=== PATIENT | female | born 1965 | race Caucasian/White ===

== ENCOUNTER 2020-03-23 10:30 | Outpatient (CLI) | payer OTHER, SELFPAY ==
--- NOTE | ~2020-03-23 | MM_ITS ---
EXAMINATION: MM screening yvonne BI w doris HISTORY: Screening mammogram TECHNIQUE: Craniocaudal and mediolateral oblique 3-D tomosynthesis images were obtained and synthetic 2-D images were generated. CAD analysis was submitted and interpreted. COMPARISON: bilateral digital screening mammogram BREAST PARENCHYMAL COMPOSITION: The breasts are heterogeneously dense, which may obscure small masses . FINDINGS: Occasional bilateral benign calcifications, primarily arterial. There is no evidence of ry picious mass, calcification, or architectural distortion to suggest malignancy in either breast. Ther e has been no suspicious interval change. IMPRESSION: 1. No mammographic evidence of malignancy. 2. Recommend routine screening mammography in one year. BI-RADS Category 2: Benign finding(s). Reviewed, dictated and finalized at location A. OGY PHYSICIAN
== END 2020-03-23 10:31 | disposition home or self-care (01) ==
LOC: ANHIMG 10:32
PROVIDERS: PCP Physician Assistant; Visit Provider Obstetrics & Gynecology
DX: Z12.31 Encounter for screening mammogram for malignant neoplasm of breast (principal)
CPT/HCPCS: 77063; 77067

== ENCOUNTER 2020-04-07 07:46 | Outpatient (CLI) | payer OTHER, SELFPAY ==
--- NOTE | ~2020-04-07 | US_ITS ---
EXAMINATION: US pelvic complete EXAM DATE: 04/07/2020 09:16 INDICATION: Right lower quadrant pain. TECHNIQUE: Pelvic transabdominal sonogram was performed. There are multiple grayscale and Doppler im ages available for interpretation. There is no prior study for comparison. FINDINGS: Uterus measures 8.1 x 3.1 x 4.2 cm, is anteverted and morphologically normal. Endometrial stripe measures 6 mm, within normal limits. There is no free pelvic fluid. Right adnexa: The ovary measures 2.1 x 1.1 x 2.1 cm and is morphologically normal. Ovarian vascular f low confirmed. Left adnexa: The ovary measures 1.1 x 1.8 x 2.3 cm and is morphologically normal. Ovarian vascular fl ow confirmed. IMPRESSION: Unremarkable pelvic ultrasound exam. Reviewed, dictated and finalized at location B. CUTTER
--- NOTE | ~2020-04-07 | US_ITS ---
EXAMINATION: US abdomen complete DATE: 04/07/2020 09:14 INDICATION: Right lower quadrant abdominal pain. TECHNIQUE: Multiple grayscale and Doppler ultrasound images of the abdomen were obtained. COMPARISON: None FINDINGS: The visualized portions of the head, body, and tail of the pancreas are normal. The abdomin al aorta is normal in caliber. The inferior vena cava is normal. The liver is normal without focal le yesy. No liver surface nodularity. There is normal flow in main portal vein. The gallbladder is jose l in size. No gallstones or gallbladder wall thickening. There was no sonographic Botello sign. The co mmon duct is normal and measures 3 mm. The kidneys are normal in size. The spleen is normal in size. IMPRESSION: 1. Normal complete abdomen ultrasound. Reviewed, dictated and finalized at location A. AL LABORATORY ASSISTANT
== END 2020-04-07 07:47 | disposition home or self-care (01) ==
LOC: CHSIMG 07:49
PROVIDERS: PCP Physician Assistant; Visit Provider Physician Assistant
DX: R10.31 Right lower quadrant pain (principal)
CPT/HCPCS: 76700; 76856

== ENCOUNTER 2021-04-24 12:10 | Outpatient (CLI) | payer OTHER, SELFPAY ==
--- NOTE | ~2021-04-24 | MM_ITS ---
EXAMINATION: MM screening yvonne BI w doris HISTORY: Screening mammogram TECHNIQUE: Craniocaudal and mediolateral oblique 3-D tomosynthesis images were obtained and synthetic 2-D images were generated. CAD analysis was submitted and interpreted. COMPARISON: 03/23/2020, 06/25/2011 bilateral screening mammogram examinations BREAST PARENCHYMAL COMPOSITION: The breasts are heterogeneously dense, which may obscure small masses . FINDINGS: There is no evidence of suspicious mass, calcification, or architectural distortion to sugg est malignancy in either breast. There has been no suspicious interval change. IMPRESSION: 1. No mammographic evidence of malignancy. 2. Recommend routine screening mammography in one year. BI-RADS Category 1: Negative Reviewed, dictated and finalized at location A. WARE DEPLOYMENT ENGINEER
--- NOTE | ~2021-04-24 | XR_ITS ---
EXAMINATION: XR lumbar spine 2-3V DATE: 04/24/2021 12:48 INDICATION: Low back pain TECHNIQUE: Anteroposterior and lateral views of the lumbar spine, and cone-down lateral view of the l umbosacral junction were obtained. COMPARISON: None. FINDINGS: There is no fracture, dislocation, or subluxation. The vertebral body heights are maintaine d. There is moderate loss of intervertebral disc space height at L2-3 and mild loss of intervertebral disc space height throughout the remainder of the lumbar spine. Small degenerative osteophytes proje ct from the anterior endplates of multiple vertebral bodies. IMPRESSION: 1. Moderate lumbar spondylosis without acute findings. Reviewed, dictated and finalized at location F. R SENIOR SERGEANT
== END 2021-04-24 12:11 | disposition home or self-care (01) ==
LOC: CHSIMG 12:11
PROVIDERS: PCP Physician Assistant; Visit Provider Physician Assistant
DX: M54.51 Vertebrogenic low back pain (principal); Z12.31 Encounter for screening mammogram for malignant neoplasm of breast
CPT/HCPCS: 72100; 77063; 77067

== ENCOUNTER → 2021-05-19 00:50 | Outpatient (CLI) | payer OTHER, SELFPAY ==
[2021-05-19 12:15] LABS: SARS-CoV-2 RNA PCR Negative
== END ==
PROVIDERS: PCP Physician Assistant; Visit Provider Internal Medicine Gastroenterology
DX: Z01.812 Encounter for preprocedural laboratory examination (principal); Z20.822 Contact with and (suspected) exposure to COVID-19
CPT/HCPCS: C9803; U0003; U0005

== ENCOUNTER 2021-05-22 00:12 | Day surgery (SDC) | payer OTHER, SELFPAY ==
[2021-05-11 14:30] VITALS: BMI 19.5
[2021-05-22 06:40] VITALS: BP 109/56; PULSE 75; RESP 16; TEMP 36.7; O2SAT 99; BMI 19.4
[2021-05-22] MEDS: LACTATED RINGERS 1,000 ML 150 ML IV CONT (07:06)
--- NOTE | 2021-05-22 07:17 | P.PNAN_ITS ---
Anes - Initial Pre Proc Eval Procedure: Operation Date: 05/22/21 08:00 Proposed Procedures p Screening Colonoscopy - Ace Lott MD Date/Time: 05/22/21 07:17 Surgeon: Ace Lott MD Pre Op Diagnosis: neoplasm screening Patient Data Age: 55 Gender: F Height: 1.68 m Weight: 54.7 kg Last Vital Signs Temp 36.7 C 05/22/21 06:40 Pulse 75 05/22/21 06:40 Resp 16 05/22/21 06:40 BP 109/56 L 05/22/21 06:40 Pulse Ox 99 05/22/21 06:40 Allergies Allergy/AdvReac Type Severity Reaction Status Date / Time No Known Allergies Allergy Verified 05/22/21 06:49 Home Medications Medication Instructions Recorded Confirmed Type levothyroxine 150 mcg tablet 150 mcg PO DAILY 02/04/19 05/22/21 History multivitamin 1 tablet PO DAILY 03/14/21 05/22/21 History Patient hx anesthesia problems: none Family hx anesthesia problems: none Results Review: All pre-operative results and documents have been reviewed as part of the pre-operative evaluation. [facility] Past Medical History Medical History Anxiety Asthma Depression Hypothyroidism Mitral valve disorder Surgical History Surgical History H/O exploratory laparotomy Family History Family History Grandparent Cerebrovascular accident Family history of malignant neoplasm Social History Social History Smoking status: Former smoker Tobacco type: cigarettes Alcohol intake: current Drinks per week: 3 Living arrangements: with family Spiritual care concerns: No Anes - Eval Final PreProcedure Day of Procedure 05/22/21 07:17 Patient weight: normal Heart: regular rate and rhythm Lungs: clear to auscultation Airway: Mallampati scale class II Neurological: alert and oriented Last oral intake: >/= 8 hours ASA classification: II Emergent: no Anesthetic plan: proceed Anesthesia type and monitoring: general GIVS and standard monitoring Results Review: All pre-operative results and documents have been reviewed as part of the pre-operative evaluation. Informed Consent: The patient's anesthetic plan and its attendant risks and benefits were discussed with the patient/family/POA. Questions were solicited and answers provided to the satisfaction of the patient/family/POA.
--- NOTE | 2021-05-22 08:05 | PM.HPGS ---
History of Present Illness History of Present Illness Consent: Risks, benefits, and alternatives have been discussed and questions answered. Patient agrees to proceed with procedure. Chief complaint: neoplasm screening Narrative: Chayo Olivarez is a 55 year old female here for first screening colonoscopy Review of Systems Constitutional: Constitutional: Denies headache(s) and Denies weakness Eyes: Eyes: Denies blurry vision ENT: Reports Normal hearing present, Denies headache(s) and Denies neck pain Cardiovascular: Cardiovascular: Denies chest pain and Denies dyspnea Respiratory: Respiratory: Denies dyspnea Gastrointestinal: Gastrointestinal: Reports no additional gastrointestinal complaints Genitourinary: Genitourinary: Denies dysuria Musculoskeletal: Musculoskeletal: Denies neck pain Integumentary/Breasts: Skin/Breast: Denies dry skin Neurologic: Reports Normal hearing present, Denies headache(s) and Denies weakness Psychiatric: Psychiatric: Denies anxiety Endocrine: Endocrine: Denies change in body appearance Hematologic/Lymphatic: Hematologic/Lymphatic: Denies easy bleeding Allergic/Immunologic: Allergic/Immunologic: Denies urticaria PMF Past Medical History Medical History (Updated 05/22/21 @ 08:06 by Ace Lott MD) Anxiety Asthma Colon cancer screening Depression Hypothyroidism Mitral valve disorder Surgical History Surgical History H/O exploratory laparotomy Family History Family History Grandparent Cerebrovascular accident Family history of malignant neoplasm Social History Social History Smoking status: Former smoker Tobacco type: cigarettes Alcohol intake: current Drinks per week: 3 Living arrangements: with family Spiritual care concerns: No Meds Home Medications and Allergies Home Medications Medication Instructions Recorded Confirmed Type levothyroxine 150 mcg tablet 150 mcg PO DAILY 02/04/19 05/22/21 History multivitamin 1 tablet PO DAILY 03/14/21 05/22/21 History Allergies Allergy/AdvReac Type Severity Reaction Status Date / Time No Known Allergies Allergy Verified 05/22/21 06:49 Vital Signs Vital Signs - 24 hr 05/22/21 06:40 Temperature 98.1 F Pulse Rate 75 Respiratory Rate 16 Blood Pressure 109/56 L Pulse Oximetry 99 Exam Const: General: comfortable and no acute distress HENMT: General nose exam: Normal nares present Eyes: General: appearance normal, both eyes and all related structures Neck: Neck: no JVD Resp: Auscultation: clear to auscultation bilaterally Cardio: Rate: regular rate Rhythm: regular rhythm GI: Inspection: non-distended GI Palp: Yes Soft to palpation Skin: General skin exam: normal color Neuro: General: gait normal Speech: normal speech Extrem: General: normal to inspection Psych: Mental Status: mental status grossly normal Assessment and Plan Assessment and plan (1) Colon cancer screening: Code(s): Z12.11 - Encounter for screening for malignant neoplasm of colon Status: Acute Assessment and Plan: colonoscopy
[2021-05-22 08:18] VITALS: BP 87/33; PULSE 72; RESP 17; O2SAT 97
[2021-05-22 08:28] VITALS: BP 96/47; PULSE 54; RESP 20; O2SAT 97
[2021-05-22 08:38] VITALS: BP 93/56; PULSE 62; RESP 20; O2SAT 100
== END 2021-05-22 08:48 | disposition home or self-care (01) ==
PROVIDERS: PCP Physician Assistant; Visit Provider Internal Medicine Gastroenterology
PROC: 0DJD8ZZ Inspection of Lower Intestinal Tract, Via Natural or Artificial Opening Endoscopic (ICD-10-PCS; CPT 45378; principal; 2021-05-22 08:00)
DX: Z12.11 Encounter for screening for malignant neoplasm of colon (principal); F41.8 Other specified anxiety disorders; J45.909 Unspecified asthma, uncomplicated; E03.9 Hypothyroidism, unspecified; I34.8 Other nonrheumatic mitral valve disorders; Z87.891 Personal history of nicotine dependence
CPT/HCPCS: 45378; J2704; J7120

== ENCOUNTER 2022-08-19 13:45 | Outpatient (RCR) | payer OTHER, SELFPAY ==
--- NOTE | 2022-07-08 15:52 | PTOPEVAL1 ---
Assessment and note entered by Renata Tello DPT Evaluation Information Assessment Status Evaluation Subjective Information Pt reports a long history of pelvic pain and low right sided abdominal pain. Some pain with her last pelvic exam. Highest pain 3/10 recently and lowest 0/10. Pain increases with touching her abdomen, having a BM. Urinates 3-4 times a day and sometimes 1 time at night. Reports some issues with urgency, maybe can wait a couple minutes. Leaks urine, sometimes several times a day and then other times will go days without. Volume can be up to her full bladder. Wears a pad sometimes. No pain with urination. BM sometimes every 3rd day , has been diagnosed with IBS with constipation. Denies history of pain with tampon or itnercourse. Pt has been 4 times, 4 deliveries all vaginal, episiotomy with her first. Has a history of endometriosis. Patient goal: not have pain. Reported Pain Level Pain Score 0: Self Report Assessment PT Clinical Summary The patient is presenting to skilled therapy with a several year history of pelvic/abominal pain as well as urinary urgency and incontinence. She presents with pain with palpation and decreased pelvic floor and core strength which are contributing to her pain and difficulty with activities like having a BM and incontinence. She will benefit from therapy to address these impairments and safely reduce pain and dysfunction . Plan of Care Interventions Electrical Stimulation,Hot Pack/Cold Pack,Manual Therapy,Neuro Re-education,Patient/Caregiver Education,Therapeutic Activities,Therapeutic Exercise,Self-Care/Home Management PT Services Indicated Yes Treatment Frequency and 1 time a week for 4 weeks Duration These treatments will address the objective and functional deficits as defined above. The patient will be advanced safely and appropriately in order for the patient to progress towards his/her prior level of function. Additional exercises will be introduced and as well as a comprehensive home exercise program upon discharge, if needed, ?to ensure carryover of functional gains achieved in the clinic. This treatment plan has been reviewed and agreement upon by the patient.
--- NOTE | 2022-08-13 11:20 | PCPTNOTE ---
Patient forgot about appointment due to her work schedule. Will be in next week for her re-evaluation.
--- NOTE | 2022-08-19 14:15 | PTOPDC ---
Assessment and note entered by Renata Tello DPT Evaluation Information Assessment Status Discharge Subjective Information Highest pain recently 5/10 and lowest 0/10. Denies incontinence in the last week. Urinating 3-4 times a day. Feels confident in discharge this visit as the pain doesn't seem to affect much. Reported Pain Level Pain Score 0: Self Report Assessment PT Clinical Summary The patient has made good progress in therapy. She reports no incontinence in the last week and demonstrates improved pelvic floor strength and endurance. She reports less pelvic and abdominal pain with palpation, and that her pain does not limit activities at this time. Due to her progress , plan for discharge this visit. She has been educated to continue her HEP and follow up with MD and/or PT as needed. Plan of Care PT Services Indicated No
== END 2022-08-19 14:53 | disposition home or self-care (01) ==
LOC: ANHGOSHPT 13:45
PROVIDERS: PCP Physician Assistant; Visit Provider Obstetrics & Gynecology
DX: R10.2 Pelvic and perineal pain (principal)
CPT/HCPCS: 97110; 97112; 97140; 97161

== ENCOUNTER 2022-09-23 14:30 | Outpatient (CLI) | payer OTHER, SELFPAY ==
--- NOTE | ~2022-09-23 | MM_ITS ---
EXAMINATION: MM screening [facility] BI w doris HISTORY: Screening mammogram TECHNIQUE: Craniocaudal and mediolateral oblique 3-D tomosynthesis images were obtained and synthetic 2-D images were generated. CAD analysis was submitted and interpreted. COMPARISON: 04/24/2021, 03/23/2020 BREAST PARENCHYMAL COMPOSITION: The breasts are heterogeneously dense, which may obscure small masses . FINDINGS: No suspicious mass, calcification, or architectural distortion are identified in either alivia ast to suggest malignancy. There has been no suspicious interval change. IMPRESSION: 1. No mammographic evidence of malignancy. 2. Recommend routine screening mammography in one year. BI-RADS Category 1: Negative Reviewed, dictated and finalized at location A.
== END 2022-09-23 14:31 | disposition home or self-care (01) ==
LOC: CHSIMG 14:31
PROVIDERS: PCP Physician Assistant; Visit Provider Obstetrics & Gynecology
DX: Z12.31 Encounter for screening mammogram for malignant neoplasm of breast (principal)
CPT/HCPCS: 77063; 77067

== ENCOUNTER 2023-12-16 13:16 | Outpatient (CLI) | payer OTHER, SELFPAY ==
--- NOTE | ~2023-12-16 | MM_ITS ---
EXAMINATION: MM screening yvonne BI w doris HISTORY: Screening TECHNIQUE: Craniocaudal and mediolateral oblique 3-D tomosynthesis images were obtained and synthetic 2-D images were generated. CAD analysis was submitted and interpreted. COMPARISON: Comparison to multiple prior studies sequentially, with oldest reviewed study dated 03/23. BREAST PARENCHYMAL COMPOSITION: Dense: The breasts are heterogeneously dense, which may obscure small masses FINDINGS: There is focal asymmetry in the upper outer quadrant of the right breast. The left breast i s stable without evidence for malignancy. IMPRESSION: 1. Focal asymmetry in the right breast. 2. Additional mammographic views and possible breast ultrasound are recommended. BI-RADS Category 0: Incomplete: Needs additional imaging evaluation. Reviewed, dictated and finalized at location B. IMPRESSION: 1. Focal asymmetry in the right breast. 2. Additional mammographic views and possible breast ultrasound are recommended . BI-RADS Category 0: Incomplete: Needs additional imaging evaluation.
== END 2023-12-16 13:17 | disposition home or self-care (01) ==
PROVIDERS: PCP Physician Assistant; Visit Provider Obstetrics & Gynecology
DX: Z12.31 Encounter for screening mammogram for malignant neoplasm of breast (principal); R92.8 Other abnormal and inconclusive findings on diagnostic imaging of breast
CPT/HCPCS: 77063; 77067

== ENCOUNTER 2023-12-30 09:02 | Outpatient (CLI) | payer OTHER, SELFPAY ==
--- NOTE | ~2023-12-30 | MM_ITS ---
EXAMINATION: MM diagnostic yvonne RT w doris HISTORY: Right breast asymmetry TECHNIQUE: Additional 3-D tomosynthesis images of the right breast were performed and synthetic 2-D i mages were generated. CAD analysis was submitted and interpreted. COMPARISON: 12/16/2023 BREAST PARENCHYMAL COMPOSITION:Dense: The breasts are heterogeneously dense, which may obscure small masses. FINDINGS: The asymmetry demonstrates effacement with spot compression. No persistent mass lesion or d istortion seen. No suspicious parenchymal calcification. IMPRESSION: No mammographic evidence for malignancy. BI-RADS Category 1: Negative Reviewed, dictated and finalized at location .
== END 2023-12-30 09:03 | disposition home or self-care (01) ==
LOC: CHSIMG 09:05
PROVIDERS: PCP Physician Assistant; Visit Provider Nurse Practitioner Obstetrics & Gynecology
DX: R92.8 Other abnormal and inconclusive findings on diagnostic imaging of breast (principal)
CPT/HCPCS: 77061; 77065; G0279